=== PATIENT | male | born 1940 | race Caucasian/White ===

== ENCOUNTER 2023-09-12 17:57 | Emergency (ER) | payer MEDICARE, BC ==
[~2023-09-12] VITALS: Ht 188 cm; Wt 113.4 kg
[2023-09-12 18:32] VITALS: BP 158/94; TEMP 98.2; O2SAT 100
[2023-09-12 18:44] LABS: BASOPHILS % (AUTO) 0.6 % (0.0-2.0); EOSINOPHILS # (AUTO) 0.3 K/uL (0.0-0.7); EOSINOPHILS % (AUTO) 5.8 % (0.0-6.0); HEMATOCRIT 33 % (39-51); HEMOGLOBIN 11.1 g/dL (13.5-17.5); LYMPHOCYTES # (AUTO) 1.1 K/uL (0.8-4.8); LYMPHOCYTES % (AUTO) 19.4 % (20.0-44.0); MEAN CORPUSCULAR HEMOGLOBIN 34 PG (26.0-33.0); MEAN CORPUSCULAR HGB CONC 33 g/dl (31.0-36.0); MEAN CORPUSCULAR VOLUME 101 fL (80-96); MONOCYTES # (AUTO) 0.5 K/uL (0.1-1.30); MONOCYTES % (AUTO) 7.9 % (2.0-12.0); NEUTROPHILS # (AUTO) 3.9 K/uL (1.8-8.9); NEUTROPHILS % (AUTO) 66.3 % (43.0-81.0); PLATELET COUNT (AUTO) 168 K/uL (150-450); RED BLOOD CELL COUNT(AUTO) 3.28 MIL/uL (4.5-6.0); RED CELL DISTRIBUTION WIDTH 15.3 % (11.5-15.0); WHITE BLOOD COUNT (AUTO) 5.9 K/uL (4.3-11.0)
[2023-09-12 18:57] LABS: INR 1.06 (0.91-1.10); PARTIAL THROMBOPLASTIN TIME 33.6 SEC (24.3-34.3); PROTHROMBIN TIME 10.9 SECS (9.2-11.1)
== END 2023-09-12 20:16 ==
LOC: ER 18:23
DX: R04.0 Epistaxis (principal); H11.31 Conjunctival hemorrhage, right eye; I10 Essential (primary) hypertension
CPT/HCPCS: 36415; 85025-TC; 85730-TC

== ENCOUNTER 2024-05-25 15:46 | Inpatient (IN) | payer MEDICARE, BC ==
[~2024-05-25] VITALS: Ht 193 cm; Wt 108.9 kg
[2024-05-25] MEDS ORDERED: FAMOTIDINE/PF INJ 20 MG/2 ML VIAL IV ONE (17:46)
[2024-05-25] MEDS ORDERED: ONDANSETRON HCL/PF 4 MG/2 ML VIAL ONE (17:46)
[2024-05-25 17:54] LABS: BASOPHILS # (AUTO) 0.1 K/uL (0.0-0.2); BASOPHILS % (AUTO) 0.7 % (0.0-2.0); EOSINOPHILS % (AUTO) 0.1 % (0.0-6.0); HEMATOCRIT 40 % (39-51); HEMOGLOBIN 13.3 g/dL (13.5-17.5); LYMPHOCYTES # (AUTO) 0.1 K/uL (0.8-4.8); LYMPHOCYTES % (AUTO) 0.9 % (20.0-44.0); MEAN CORPUSCULAR HEMOGLOBIN 34 PG (26.0-33.0); MEAN CORPUSCULAR HGB CONC 34 g/dl (31.0-36.0); MEAN CORPUSCULAR VOLUME 101 fL (80-96); MONOCYTES # (AUTO) 0.2 K/uL (0.1-1.30); MONOCYTES % (AUTO) 1.4 % (2.0-12.0); NEUTROPHILS # (AUTO) 14.4 K/uL (1.8-8.9); NEUTROPHILS % (AUTO) 96.9 % (43.0-81.0); PLATELET COUNT (AUTO) 132 K/uL (150-450); RED BLOOD CELL COUNT(AUTO) 3.94 MIL/uL (4.5-6.0); WHITE BLOOD COUNT (AUTO) 14.9 K/uL (4.3-11.0)
[2024-05-25] MEDS: IV NS 0.9% 1,000 ML BAG IV ONE ×3 (17:54→21:40)
[2024-05-25] MEDS: ONDANSETRON HCL/PF 4 MG/2 ML VIAL IVP ONE (17:55)
[2024-05-25] MEDS: FAMOTIDINE/PF INJ 20 MG/2 ML VIAL IV ONE (17:55)
[2024-05-25 18:54] LABS: POTASSIUM 4.6 mmol/L (3.5-5.1); SODIUM SERUM 142 mmol/L (136-145)
[2024-05-25 18:55] LABS: CALCIUM, SERUM 9.4 mg/dL (8.5-10.1); CARBON DIOXIDE 25 mmol/L (21-32); CHLORIDE 104 mmol/L (98-107); CREATININE 1.9 mg/dL (0.6-1.3)
[2024-05-25 18:56] LABS: ALBUMIN 3.5 g/dL (3.4-5.0)
[2024-05-25 18:57] LABS: UREA NITROGEN, BLOOD 31 mg/dL (7-18)
[2024-05-25 18:58] LABS: ASPARTATE AMINOTRANSFERASE 23 U/L (15-37); BILIRUBIN,DIRECT 0.4 mg/dL (0.0-0.2); GLUCOSE 92 mg/dL (74-106)
[2024-05-25 18:59] LABS: ALANINE AMINOTRANSFERASE 15 U/L (12-78)
[2024-05-25 19:00] LABS: ALKALINE PHOSPHATASE 70 U/L (46-116); TOTAL PROTEIN, SERUM 7.4 g/dL (6.4-8.2)
[2024-05-25 19:10] LABS: LIPASE 19 U/L (16-77)
[2024-05-25 19:35] LABS: APPEARANCE,URINE CLOUDY (CLEAR); BILIRUBIN,URINE 1+ (NEGATIVE); BLOOD, URINE 3+ Ery/uL (NEGATIVE); COLOR,URINE RED (YELLOW); KETONES,URINE TRACE mg/dL (NEGATIVE); LEUKOCYTE ESTERASE ,URINE 2+ (NEGATIVE); NITRITE, URINE POSITIVE (NEGATIVE); PH,URINE 8.5 (5.0-8.0); PROTEIN,URINE 3+ mg/dl (NEGATIVE); UGLUCOSE NEGATIVE (NEGATIVE); UROBILINOGEN,URINE 0.2 EU/dL (0.2)
[2024-05-25] MEDS ORDERED: FURO20TA4 PO (19:35)
[2024-05-25] MEDS ORDERED: FAMO1TAB PO (19:35)
[2024-05-25] MEDS ORDERED: ASCO-352 PO (19:35)
[2024-05-25] MEDS ORDERED: DOCU100T2 PO (19:35)
[2024-05-25] MEDS ORDERED: OMEG-88 PO (19:35)
[2024-05-25] MEDS ORDERED: ATOR10TA PO (19:35)
[2024-05-25] MEDS ORDERED: ASPI-1420 PO (19:35)
[2024-05-25] MEDS ORDERED: MULT-1168 PO (19:35)
[2024-05-25] MEDS ORDERED: LACT10SO68 PO (19:35)
[2024-05-25] MEDS ORDERED: POLY17PO4 PO (19:35)
[2024-05-25] MEDS ORDERED: SIME125C81 PO (19:35)
[2024-05-25] MEDS ORDERED: CHOL500062 PO (19:35)
[2024-05-25] MEDS ORDERED: SPIR50TA5 PO (19:35)
[2024-05-25] MEDS ORDERED: B CO1TAB6 PO (19:35)
[2024-05-25] MEDS ORDERED: MELA5TAB PO (19:35)
[2024-05-25] MEDS ORDERED: SENN8.6T19 PO (19:35)
[2024-05-25] MEDS ORDERED: BISA10SU11 RC (19:35)
[2024-05-25] MEDS ORDERED: ALLO100T PO (19:35)
[2024-05-25] MEDS ORDERED: ACET325T53 PO (19:35)
[2024-05-25 19:43] LABS: RBC,URINE TOO NUMEROUS TO COUN /HPF (0-2)
[2024-05-25 19:47] LABS: ADD URINE CULTURE YES; BACTERIA,URINE Few /HPF (None Seen); SQUAMOUS EPITHELIAL CELL,UR None Seen /HPF (None Seen)
[2024-05-25] MEDS: CEFTRIAXONE 1GM BAG (ER ONLY) 1 GM/50 ML PIGGYBACK IV ONE (20:07)
[2024-05-25] MEDS ORDERED: ASPIRIN 325 MG TABLET ONE (21:03)
[2024-05-25] MEDS: ASPIRIN 325 MG TABLET PO ONE (21:06)
[2024-05-25] MEDS ORDERED: MAGNESIUM HYDROXIDE 30 ML UDC PO PRN (22:00)
[2024-05-25] MEDS ORDERED: ONDANSETRON HCL/PF 4 MG/2 ML VIAL IVP PRN (22:00)
[2024-05-25] MEDS ORDERED: SENNOSIDES 8.6 MG TABLET PO PRN (22:00)
[2024-05-25] MEDS ORDERED: MAG HYDROX/AL HYDROX/SIMETH 30 ML UDC PO PRN (22:00)
[2024-05-25] MEDS ORDERED: Z GUARD REMEDY 4 OZ OINT TP PRN (22:00)
[2024-05-25] MEDS: CEFTRIAXONE 1 G in IV D5W 50 ML IV SCH (22:00)
[2024-05-25] MEDS ORDERED: ACETAMINOPHEN 325 MG TABLET PO PRN (22:00)
[2024-05-25] MEDS ORDERED: BISACODYL SUPP (10 MG) 10 MG/SUPP.RECT SUPP.RECT RC PRN (22:00)
[2024-05-25 22:07] LABS: LACTIC ACID 3.4 mmol/L (0.4-2.0)
[2024-05-25] MEDS ORDERED: LACTULOSE 10 G/15 ML UDC (PYXIS) PO PRN (22:30)
[2024-05-25] MEDS ORDERED: SIMETHICONE SUSP 40 MG/0.6 ML BOTTLE PO PRN (22:30)
[2024-05-25] MEDS ORDERED: DOCUSATE SODIUM 100 MG CAPSULE PO PRN (22:30)
[2024-05-25] MEDS ORDERED: ATORVASTATIN 10 MG TABLET ONE (22:43)
[2024-05-25] MEDS: ATORVASTATIN 10 MG TABLET PO SCH (22:45)
[2024-05-26] MEDS: VANCOMYCIN 1 GM in IV D5W 250ml IV SCH
[2024-05-26] MEDS ORDERED: VANCOMYCIN 1 GM /D5W 250 ML PB IV ONE ×2 (00:36→01:57)
[2024-05-26] MEDS ORDERED: PANTOPRAZOLE 40 MG VIAL ONE (08:46)
[2024-05-26] MEDS: CEFEPIME 1 GM in IV D5W 50 ML IV SCH (08:57)
[2024-05-26] MEDS: PANTOPRAZOLE 40 MG VIAL IV SCH (08:57)
[2024-05-26] MEDS: VITAMIN B COMP W-C 1 TAB TABLET PO SCH (08:58)
[2024-05-26] MEDS: POLYETHYLENE GLYCOL 3350 17 GM POWD.PACK PO SCH (08:58)
[2024-05-26] MEDS: ASPIRIN EC 81 MG TABLET.DR PO SCH (08:58)
[2024-05-26] MEDS: FUROSEMIDE 20 MG TABLET PO SCH (08:58)
[2024-05-26] MEDS: SPIRONOLACTONE 50 MG TABLET PO SCH (08:58)
[2024-05-26] MEDS: ASCORBIC ACID 500 MG TABLET PO SCH (08:59)
[2024-05-26] MEDS: MULTIVITAMINS,THERAGRAN 1 UDTAB TABLET PO SCH (08:59)
[2024-05-26] MEDS: CHOLECALCIFEROL 1,000 UNIT TABLET (VIT D3) PO SCH (08:59)
[2024-05-26] MEDS ORDERED: DHA PO SCH (09:00)
[2024-05-26] MEDS ORDERED: OMEGA PO SCH (09:00)
[2024-05-26] MEDS ORDERED: FISH OIL PO SCH (09:00)
[2024-05-26] MEDS ORDERED: [UNRECOGNIZED DRUG - OTHER] PO SCH (09:00)
[2024-05-26] MEDS ORDERED: EPA PO SCH (09:00)
[2024-05-26 09:33] LABS: BASOPHILS % (AUTO) 0.1 % (0.0-2.0); EOSINOPHILS % (AUTO) 0.1 % (0.0-6.0); HEMATOCRIT 37 % (39-51); HEMOGLOBIN 12.2 g/dL (13.5-17.5); LYMPHOCYTES # (AUTO) 0.7 K/uL (0.8-4.8); LYMPHOCYTES % (AUTO) 3.3 % (20.0-44.0); MEAN CORPUSCULAR HEMOGLOBIN 34 PG (26.0-33.0); MEAN CORPUSCULAR HGB CONC 33 g/dl (31.0-36.0); MEAN CORPUSCULAR VOLUME 103 fL (80-96); MONOCYTES # (AUTO) 0.8 K/uL (0.1-1.30); MONOCYTES % (AUTO) 3.6 % (2.0-12.0); NEUTROPHILS # (AUTO) 19.4 K/uL (1.8-8.9); NEUTROPHILS % (AUTO) 92.9 % (43.0-81.0); PLATELET COUNT (AUTO) 128 K/uL (150-450); RED CELL DISTRIBUTION WIDTH 14.3 % (11.5-15.0); WHITE BLOOD COUNT (AUTO) 20.8 K/uL (4.3-11.0)
[2024-05-26 09:47] LABS: CALCIUM, SERUM 8.8 mg/dL (8.5-10.1); CREATININE 1.6 mg/dL (0.6-1.3); MAGNESIUM 2.1 mg/dL (1.8-2.4); PHOSPHORUS 3.3 mg/dL (2.5-4.9)
[2024-05-26] MEDS: ENOXAPARIN SODIUM 40 MG/0.4 ML DISP.SYRIN SQ SCH (13:30)
[2024-05-26] MEDS ORDERED: ENOXAPARIN SODIUM 40 MG/0.4 ML DISP.SYRIN SQ ONE (13:45)
[2024-05-26] MEDS ORDERED: CEFEPIME 1 GM VIAL ONE (20:55)
[2024-05-26] MEDS ORDERED: ATORVASTATIN 10 MG TABLET ONE (22:38)
[2024-05-27] MEDS ORDERED: VANCOMYCIN 1 GM /D5W 250 ML PB IV ONE (00:55)
[2024-05-27] MEDS: VANCOMYCIN 1 GM in IV D5W 250ml IV SCH (00:56)
[2024-05-27 07:31] LABS: CALCIUM, SERUM 9.1 mg/dL (8.5-10.1); CREATININE 1.3 mg/dL (0.6-1.3); MAGNESIUM 2.1 mg/dL (1.8-2.4); PHOSPHORUS 2.8 mg/dL (2.5-4.9); POTASSIUM 4.9 mmol/L (3.5-5.1); TOTAL PROTEIN, SERUM 6.8 g/dL (6.4-8.2)
[2024-05-27 07:38] LABS: LACTIC ACID 1.2 mmol/L (0.4-2.0)
[2024-05-27] MEDS ORDERED: PANTOPRAZOLE 40 MG VIAL ONE (08:38)
[2024-05-27] MEDS ORDERED: FUROSEMIDE 20 MG TABLET ONE (08:38)
[2024-05-27] MEDS ORDERED: ASPIRIN 81 MG TAB.CHEW ONE (08:39)
[2024-05-27] MEDS ORDERED: SPIRONOLACTONE 25 MG TABLET ONE (08:39)
[2024-05-27] MEDS: SPIRONOLACTONE 25 MG TABLET PO SCH (08:56)
[2024-05-27 09:22] LABS: BASOPHILS % (AUTO) 0.1 % (0.0-2.0); EOSINOPHILS % (AUTO) 0.3 % (0.0-6.0); HEMATOCRIT 37 % (39-51); HEMOGLOBIN 12.7 g/dL (13.5-17.5); LYMPHOCYTES # (AUTO) 0.5 K/uL (0.8-4.8); LYMPHOCYTES % (AUTO) 4.3 % (20.0-44.0); MEAN CORPUSCULAR HEMOGLOBIN 35 PG (26.0-33.0); MEAN CORPUSCULAR HGB CONC 34 g/dl (31.0-36.0); MEAN CORPUSCULAR VOLUME 101 fL (80-96); MONOCYTES # (AUTO) 0.5 K/uL (0.1-1.30); MONOCYTES % (AUTO) 4.3 % (2.0-12.0); PLATELET COUNT (AUTO) 103 K/uL (150-450); RED BLOOD CELL COUNT(AUTO) 3.67 MIL/uL (4.5-6.0); RED CELL DISTRIBUTION WIDTH 14.1 % (11.5-15.0)
[2024-05-27 14:00] VITALS: BP 141/90; TEMP 98.2; O2SAT 93
[2024-05-27 16:00] VITALS: BP 119/82; TEMP 98.7; O2SAT 96
[2024-05-27 20:00] VITALS: BP 119/80; TEMP 99.2; O2SAT 95
[2024-05-28 04:00] VITALS: BP 119/76; TEMP 97.8; O2SAT 96
[2024-05-28 07:01] LABS: BASOPHILS # (AUTO) 0.1 K/uL (0.0-0.2); BASOPHILS % (AUTO) 1.7 % (0.0-2.0); EOSINOPHILS # (AUTO) 0.1 K/uL (0.0-0.7); EOSINOPHILS % (AUTO) 1.2 % (0.0-6.0); HEMATOCRIT 37 % (39-51); HEMOGLOBIN 12.8 g/dL (13.5-17.5); LYMPHOCYTES # (AUTO) 0.8 K/uL (0.8-4.8); LYMPHOCYTES % (AUTO) 11.1 % (20.0-44.0); MEAN CORPUSCULAR HEMOGLOBIN 35 PG (26.0-33.0); MEAN CORPUSCULAR HGB CONC 35 g/dl (31.0-36.0); MEAN CORPUSCULAR VOLUME 100 fL (80-96); MONOCYTES # (AUTO) 0.6 K/uL (0.1-1.30); MONOCYTES % (AUTO) 7.8 % (2.0-12.0); NEUTROPHILS # (AUTO) 5.8 K/uL (1.8-8.9); NEUTROPHILS % (AUTO) 78.2 % (43.0-81.0); PLATELET COUNT (AUTO) 108 K/uL (150-450); RED BLOOD CELL COUNT(AUTO) 3.69 MIL/uL (4.5-6.0); RED CELL DISTRIBUTION WIDTH 13.8 % (11.5-15.0); WHITE BLOOD COUNT (AUTO) 7.5 K/uL (4.3-11.0)
[2024-05-28 07:23] LABS: CREATININE 1.2 mg/dL (0.6-1.3); POTASSIUM 4.2 mmol/L (3.5-5.1)
[2024-05-28 07:40] LABS: CALCIUM, SERUM 9.1 mg/dL (8.5-10.1)
[2024-05-28 08:00] VITALS: BP 115/69; TEMP 94.6; O2SAT 97
[2024-05-28 11:45] VITALS: BP 134/80; TEMP 98.3; O2SAT 96
[2024-05-28 12:12] LABS: LYMPHOCYTES % (MANUAL) 8 % (16-48); MONOCYTES % (MANUAL) 6 % (0-11.0); NEUTROPHILS % (MANUAL) 86 (42-76); PLATELET ESTIMATE DECREASED
[2024-05-28 12:13] LABS: ANISOCYTOSIS 1+
[2024-05-28 14:09] LABS: *SPE A/G RATIO 0.9 (0.7-1.7); *SPE ALBUMIN 2.9 g/dL (2.9-4.4); *SPE ALPHA-1-GLOBULIN 0.3 g/dL (0.0-0.4); *SPE ALPHA-2-GLOBULIN 0.7 g/dL (0.4-1.0); *SPE GLOBULIN, TOTAL 3.4 g/dL (2.2-3.9); *SPE M-SPIKE Not Observed g/dL (Not Observed); *SPE PROTEIN TOTAL 6.3 g/dL (6.0-8.5); *SPEGAMMA GLOBULIN 1.4 g/dL (0.4-1.8)
[2024-05-28 20:00] VITALS: BP 125/83; TEMP 98.2; O2SAT 97
[2024-05-29] VITALS: BP 129/66; TEMP 98.1; O2SAT 97
[2024-05-29] MEDS: VANCOMYCIN HCL 1.25 GM in IV D5W 250 ML IV SCH (00:09)
[2024-05-29 01:06] LABS: PTH, INTACT 33 pg/mL (15-65)
[2024-05-29 04:00] VITALS: BP 109/62; TEMP 98.4; O2SAT 95
[2024-05-29 07:40] LABS: BASOPHILS % (AUTO) 0.2 % (0.0-2.0); EOSINOPHILS # (AUTO) 0.1 K/uL (0.0-0.7); HEMATOCRIT 37 % (39-51); HEMOGLOBIN 12.9 g/dL (13.5-17.5); LYMPHOCYTES # (AUTO) 1.1 K/uL (0.8-4.8); LYMPHOCYTES % (AUTO) 15.4 % (20.0-44.0); MEAN CORPUSCULAR HEMOGLOBIN 35 PG (26.0-33.0); MEAN CORPUSCULAR HGB CONC 35 g/dl (31.0-36.0); MEAN CORPUSCULAR VOLUME 100 fL (80-96); MONOCYTES # (AUTO) 0.8 K/uL (0.1-1.30); MONOCYTES % (AUTO) 10.7 % (2.0-12.0); NEUTROPHILS # (AUTO) 5.3 K/uL (1.8-8.9); NEUTROPHILS % (AUTO) 71.7 % (43.0-81.0); PLATELET COUNT (AUTO) 120 K/uL (150-450); RED CELL DISTRIBUTION WIDTH 13.5 % (11.5-15.0); WHITE BLOOD COUNT (AUTO) 7.4 K/uL (4.3-11.0)
[2024-05-29 08:00] VITALS: BP 132/90; TEMP 98.2; O2SAT 94
[2024-05-29 08:00] LABS: CALCIUM, SERUM 9.6 mg/dL (8.5-10.1); CREATININE 1.1 mg/dL (0.6-1.3); PHOSPHORUS 3.3 mg/dL (2.5-4.9); POTASSIUM 4.4 mmol/L (3.5-5.1)
[2024-05-29] MEDS: PANTOPRAZOLE 40 MG TABLET.DR PO SCH (08:16)
[2024-05-29 20:00] VITALS: BP 126/85; TEMP 98.7; O2SAT 93
[2024-05-30] VITALS (7 sets, daily range): BP systolic 113–138; BP diastolic 76–93; TEMP 97.7–98.7; O2SAT 93–99
[2024-05-30 06:21] LABS: BASOPHILS % (AUTO) 0.2 % (0.0-2.0); EOSINOPHILS # (AUTO) 0.2 K/uL (0.0-0.7); EOSINOPHILS % (AUTO) 2.5 % (0.0-6.0); HEMATOCRIT 38 % (39-51); HEMOGLOBIN 13.3 g/dL (13.5-17.5); LYMPHOCYTES # (AUTO) 1.2 K/uL (0.8-4.8); MEAN CORPUSCULAR HEMOGLOBIN 35 PG (26.0-33.0); MEAN CORPUSCULAR HGB CONC 35 g/dl (31.0-36.0); MEAN CORPUSCULAR VOLUME 100 fL (80-96); MONOCYTES # (AUTO) 0.8 K/uL (0.1-1.30); MONOCYTES % (AUTO) 10.5 % (2.0-12.0); NEUTROPHILS # (AUTO) 5.3 K/uL (1.8-8.9); NEUTROPHILS % (AUTO) 70.8 % (43.0-81.0); PLATELET COUNT (AUTO) 124 K/uL (150-450); RED CELL DISTRIBUTION WIDTH 13.5 % (11.5-15.0); WHITE BLOOD COUNT (AUTO) 7.5 K/uL (4.3-11.0)
[2024-05-30 06:31] LABS: CREATININE 1.1 mg/dL (0.6-1.3); MAGNESIUM 1.8 mg/dL (1.8-2.4); PHOSPHORUS 3.1 mg/dL (2.5-4.9); POTASSIUM 4.1 mmol/L (3.5-5.1)
[2024-05-31] VITALS: BP 135/88; TEMP 97.9; O2SAT 99
[2024-05-31 04:00] VITALS: BP 120/80; TEMP 97.5; O2SAT 98
[2024-05-31 08:00] VITALS: BP 148/86; TEMP 97.5; O2SAT 98
[2024-05-31] MEDS ORDERED: CT SWABBABLE VALVE TRANS SET 1 EA INFUS.SET MC ONE (10:28)
[2024-05-31] MEDS ORDERED: IOHEXOL-350 100 ML VIAL IV ONE (10:28)
[2024-05-31] MEDS ORDERED: METOPROLOL TARTRATE INJ 5 MG/5 ML AMPUL ONE (10:28)
[2024-05-31] MEDS ORDERED: NITROGLYCERIN 0.4 MG/TAB BOTTLE ONE (10:28)
[2024-05-31] MEDS ORDERED: IV NS 0.9% 250 ML IV ONE (10:28)
[2024-05-31] MEDS: METOPROLOL TARTRATE INJ 5 MG/5 ML AMPUL IVP PRN (10:45)
[2024-05-31] MEDS: NITROGLYCERIN 0.4 MG/TAB BOTTLE SL ONE (10:58)
[2024-05-31 20:33] VITALS: BP 112/68; TEMP 97.5; O2SAT 96
[2024-06-01 04:51] VITALS: BP 147/96; TEMP 98.4; O2SAT 96
[2024-06-01 08:00] VITALS: BP 125/73; TEMP 97.7; O2SAT 99
[2024-06-01 09:35] LABS: CHOLESTEROL 127 mg/dL (<200); HDL CHOLESTEROL 38 mg/dL (40-60); LDL 65 mg/dL (0-99); TRIGLYCERIDES 61 mg/dL (30-150)
[2024-06-01] MEDS ORDERED: AMOX-430 PO (11:39)
[2024-06-01 12:09] VITALS: BP 119/80; TEMP 98.3; O2SAT 95
== END 2024-06-01 18:03 | disposition home health service (06) | DRG 871 ==
LOC: ER 15:51 → TRANSITION 21:24 → TELE 05-27 10:36 → MED 06-01 11:00
DX: A41.9 Sepsis, unspecified organism (principal); G93.41 Metabolic encephalopathy; I21.A1 Myocardial infarction type 2; N39.0 Urinary tract infection, site not specified; E44.0 Moderate protein-calorie malnutrition; E87.20 Acidosis, unspecified; L03.115 Cellulitis of right lower limb; L03.116 Cellulitis of left lower limb; N17.9 Acute kidney failure, unspecified; I87.393 Chronic venous hypertension (idiopathic) with other complications of bilateral lower extremity; N20.0 Calculus of kidney; K40.90 Unilateral inguinal hernia, without obstruction or gangrene, not specified as recurrent; E78.5 Hyperlipidemia, unspecified; I48.91 Unspecified atrial fibrillation; I25.10 Atherosclerotic heart disease of native coronary artery without angina pectoris; I12.9 Hypertensive chronic kidney disease with stage 1 through stage 4 chronic kidney disease, or unspecified chronic kidney disease; N18.9 Chronic kidney disease, unspecified; I77.819 Aortic ectasia, unspecified site; D64.9 Anemia, unspecified; D69.6 Thrombocytopenia, unspecified; R65.20 Severe sepsis without septic shock; K21.9 Gastro-esophageal reflux disease without esophagitis; M20.42 Other hammer toe(s) (acquired), left foot; Z86.73 Personal history of transient ischemic attack (TIA), and cerebral infarction without residual deficits; M20.41 Other hammer toe(s) (acquired), right foot; Z99.3 Dependence on wheelchair; R80.9 Proteinuria, unspecified; Z79.899 Other long term (current) drug therapy
CPT/HCPCS: 36415; 71045-TC; 75574; 76770-TC; 80048-TC; 80053-TC; 80061-TC; 80076-TC; 80202-TC; 81001; 82550-TC; 83605-TC; 83690-TC; 83735-TC; 83970; 84100-TC; 84155; 84165; 84484-TC; 85025-TC; 87040-TC; 87086-TC; 92526; 92611-TC; 93307-TC; 97110-TC; 97116-TC; 97530-TC; A4223; G0378; J0692; J0696; J1650; J2405; J2470; J3370; J3490; J7030; J7050; J7060; Q9967

== ENCOUNTER 2024-07-08 14:18 | Inpatient (IN) | payer BC, MEDICARE ==
[~2024-07-08] VITALS: Ht 190.5 cm; Wt 111.1 kg
[~2024-07-08 14:18] MED LIST: ALLO100T PO; AMOX-430 PO; ASCO-352 PO; ASPI-1420 PO; ATOR10TA PO; B CO1TAB6 PO; BISA10SU11 RC; CHOL500062 PO; DOCU100T2 PO; FAMO1TAB PO; FURO20TA4 PO; LACT10SO68 PO; MELA5TAB PO; MULT-1168 PO; OMEG-88 PO; POLY17PO4 PO; SENN8.6T19 PO; SIME125C81 PO; SPIR50TA5 PO
[2024-07-08] MEDS ORDERED: KETOROLAC TROMETHAMINE 15 MG/ML VIAL ONE (15:47)
[2024-07-08] MEDS: IV NS 0.9% 1,000 ML BAG IV ONE ×2 (15:55→18:17)
[2024-07-08] MEDS: KETOROLAC TROMETHAMINE 15 MG/ML VIAL IV ONE (15:57)
[2024-07-08 16:09] LABS: BASOPHILS % (AUTO) 0.3 % (0.0-2.0); EOSINOPHILS % (AUTO) 0.1 % (0.0-6.0); HEMATOCRIT 37 % (39-51); HEMOGLOBIN 12.8 g/dL (13.5-17.5); LYMPHOCYTES # (AUTO) 0.4 K/uL (0.8-4.8); LYMPHOCYTES % (AUTO) 2.9 % (20.0-44.0); MEAN CORPUSCULAR HEMOGLOBIN 35 PG (26.0-33.0); MEAN CORPUSCULAR HGB CONC 35 g/dl (31.0-36.0); MEAN CORPUSCULAR VOLUME 100 fL (80-96); MONOCYTES # (AUTO) 0.6 K/uL (0.1-1.30); MONOCYTES % (AUTO) 4.1 % (2.0-12.0); NEUTROPHILS # (AUTO) 13.9 K/uL (1.8-8.9); NEUTROPHILS % (AUTO) 92.6 % (43.0-81.0); PLATELET COUNT (AUTO) 210 K/uL (150-450); RED BLOOD CELL COUNT(AUTO) 3.69 MIL/uL (4.5-6.0); RED CELL DISTRIBUTION WIDTH 15.8 % (11.5-15.0)
[2024-07-08 16:17] LABS: APPEARANCE,URINE SLIGHTLY CLOUDY (CLEAR); BILIRUBIN,URINE NEGATIVE (NEGATIVE); BLOOD, URINE 1+ Ery/uL (NEGATIVE); COLOR,URINE YELLOW (YELLOW); KETONES,URINE NEGATIVE (NEGATIVE); LEUKOCYTE ESTERASE ,URINE 1+ (NEGATIVE); NITRITE, URINE POSITIVE (NEGATIVE); PH,URINE 7.5 (5.0-8.0); PROTEIN,URINE NEGATIVE (NEGATIVE); UGLUCOSE NEGATIVE (NEGATIVE); UROBILINOGEN,URINE 0.2 EU/dL (0.2)
[2024-07-08 16:20] LABS: CALCIUM, SERUM 10.2 mg/dL (8.5-10.1); CREATININE 1.5 mg/dL (0.6-1.3); POTASSIUM 5.5 mmol/L (3.5-5.1)
[2024-07-08 16:27] LABS: ALBUMIN 3.6 g/dL (3.4-5.0); BILIRUBIN,DIRECT 0.4 mg/dL (0.0-0.2); BILIRUBIN,TOTAL 1.6 mg/dL (0.2-1.0); TOTAL PROTEIN, SERUM 8.1 g/dL (6.4-8.2)
[2024-07-08 16:53] LABS: ADD URINE CULTURE YES; BACTERIA,URINE 3+ /HPF (None Seen); SQUAMOUS EPITHELIAL CELL,UR 0-2 /HPF (None Seen)
[2024-07-08 16:54] LABS: TRIPLE PHOSPHATE CRYSTAL,UR Few /HPF (None Seen)
[2024-07-08] MEDS ORDERED: ONDANSETRON HCL/PF 4 MG/2 ML VIAL ONE (17:07)
[2024-07-08] MEDS: ONDANSETRON HCL/PF - ER 4 MG/2 ML VIAL IV ONE (17:13)
[2024-07-08] MEDS ORDERED: LOPE2CAP PO (17:24)
[2024-07-08] MEDS ORDERED: ACET325T53 PO (17:24)
[2024-07-08] MEDS ORDERED: FAMO20TA8 PO (17:24)
[2024-07-08] MEDS ORDERED: NEOM28.43 TP (17:24)
[2024-07-08] MEDS: PIPERACILLIN /TAZOBACTAM 3.375 G in IV D5W 50 ML IV ONE (18:19)
[2024-07-08] MEDS ORDERED: ACETAMINOPHEN 325 MG TABLET PO PRN (20:30)
[2024-07-08] MEDS ORDERED: Z GUARD REMEDY 4 OZ OINT TP PRN (20:30)
[2024-07-08] MEDS ORDERED: MAGNESIUM HYDROXIDE 30 ML UDC PO PRN (20:30)
[2024-07-08] MEDS ORDERED: MAG HYDROX/AL HYDROX/SIMETH 30 ML UDC PO PRN (20:30)
[2024-07-08] MEDS ORDERED: ONDANSETRON HCL/PF 4 MG/2 ML VIAL IVP PRN (20:30)
[2024-07-08 21:00] VITALS: BP 98/60; TEMP 98; O2SAT 97
[2024-07-08] MEDS ORDERED: LACTULOSE 10 G/15 ML UDC (PYXIS) PO PRN (21:00)
[2024-07-08] MEDS ORDERED: DOCUSATE SODIUM 100 MG CAPSULE PO PRN (21:00)
[2024-07-08] MEDS ORDERED: BISACODYL SUPP (10 MG) 10 MG/SUPP.RECT SUPP.RECT RC PRN (21:00)
[2024-07-08 21:30] VITALS: BP 98/60; TEMP 98; O2SAT 97
[2024-07-08] MEDS ORDERED: SODIUM ZIRCONIUM CYCLOSILICATE 10 GM POWD.PACK ONE (23:45)
[2024-07-08] MEDS ORDERED: PIPERACI/TAZO 3.375GM/D5W 50ML PB IV ONE (23:45)
[2024-07-08] MEDS: ATORVASTATIN 10 MG TABLET PO SCH (23:46)
[2024-07-08] MEDS: SODIUM ZIRCONIUM CYCLOSILICATE 10 GM POWD.PACK PO ONE (23:46)
[2024-07-08] MEDS: PIPERACILLIN /TAZOBACTAM 3.375 G in IV D5W 50 ML IV SCH (23:47)
[2024-07-09] MEDS ORDERED: PIPERACI/TAZO 3.375GM/D5W 50ML PB IV ONE (05:45)
[2024-07-09 07:04] LABS: BASOPHILS % (AUTO) 0.2 % (0.0-2.0); EOSINOPHILS # (AUTO) 0.1 K/uL (0.0-0.7); EOSINOPHILS % (AUTO) 0.3 % (0.0-6.0); HEMATOCRIT 34 % (39-51); HEMOGLOBIN 11.2 g/dL (13.5-17.5); LYMPHOCYTES # (AUTO) 1.4 K/uL (0.8-4.8); LYMPHOCYTES % (AUTO) 8.8 % (20.0-44.0); MEAN CORPUSCULAR HEMOGLOBIN 36 PG (26.0-33.0); MEAN CORPUSCULAR HGB CONC 33 g/dl (31.0-36.0); MEAN CORPUSCULAR VOLUME 107 fL (80-96); MONOCYTES # (AUTO) 1.2 K/uL (0.1-1.30); MONOCYTES % (AUTO) 7.1 % (2.0-12.0); NEUTROPHILS # (AUTO) 13.7 K/uL (1.8-8.9); NEUTROPHILS % (AUTO) 83.6 % (43.0-81.0); PLATELET COUNT (AUTO) 156 K/uL (150-450); RED BLOOD CELL COUNT(AUTO) 3.16 MIL/uL (4.5-6.0); RED CELL DISTRIBUTION WIDTH 17.2 % (11.5-15.0); WHITE BLOOD COUNT (AUTO) 16.4 K/uL (4.3-11.0)
[2024-07-09 08:00] VITALS: BP 107/62; TEMP 97.5; O2SAT 100
[2024-07-09 08:26] LABS: CREATININE 1.5 mg/dL (0.6-1.3); MAGNESIUM 2.1 mg/dL (1.8-2.4); PHOSPHORUS 4.2 mg/dL (2.5-4.9); POTASSIUM 5.3 mmol/L (3.5-5.1)
[2024-07-09] MEDS ORDERED: EPA PO SCH (09:00)
[2024-07-09] MEDS ORDERED: [UNRECOGNIZED DRUG - OTHER] PO SCH (09:00)
[2024-07-09] MEDS ORDERED: FISH OIL PO SCH (09:00)
[2024-07-09] MEDS ORDERED: DHA PO SCH (09:00)
[2024-07-09] MEDS ORDERED: OMEGA PO SCH (09:00)
[2024-07-09] MEDS: ASPIRIN EC 81 MG TABLET.DR PO SCH (10:21)
[2024-07-09] MEDS: PANTOPRAZOLE 40 MG VIAL IV SCH (10:21)
[2024-07-09] MEDS: SENNOSIDES 8.6 MG TABLET PO PRN (10:22)
[2024-07-09] MEDS: CHOLECALCIFEROL 1,000 UNIT TABLET (VIT D3) PO SCH (10:22)
[2024-07-09] MEDS: ASCORBIC ACID 500 MG TABLET PO SCH (10:22)
[2024-07-09] MEDS: VITAMIN B COMP W-C 1 TAB TABLET PO SCH (10:22)
[2024-07-09] MEDS: POLYETHYLENE GLYCOL 3350 17 GM POWD.PACK PO SCH (10:23)
[2024-07-09] MEDS: FUROSEMIDE 20 MG TABLET PO SCH (10:24)
[2024-07-09] MEDS: MULTIPLE VIT (LYCOPENE/FA/MV,CA,IRON,MIN/LUT)1 TAB PO SCH (10:28)
[2024-07-09] MEDS: SODIUM ZIRCONIUM CYCLOSILICATE 5 GM POWD.PACK PO ONE (10:58)
[2024-07-09 16:00] VITALS: BP 103/69; TEMP 98.4; O2SAT 97
[2024-07-09 20:00] VITALS: BP 106/68; TEMP 97.3
[2024-07-09 20:51] VITALS: BP 99/67; TEMP 97.3; O2SAT 97
[2024-07-10 07:10] LABS: BASOPHILS % (AUTO) 0.2 % (0.0-2.0); EOSINOPHILS # (AUTO) 0.2 K/uL (0.0-0.7); EOSINOPHILS % (AUTO) 1.6 % (0.0-6.0); HEMATOCRIT 32 % (39-51); LYMPHOCYTES # (AUTO) 1.2 K/uL (0.8-4.8); LYMPHOCYTES % (AUTO) 12.8 % (20.0-44.0); MEAN CORPUSCULAR HEMOGLOBIN 35 PG (26.0-33.0); MEAN CORPUSCULAR HGB CONC 35 g/dl (31.0-36.0); MEAN CORPUSCULAR VOLUME 101 fL (80-96); MONOCYTES # (AUTO) 0.8 K/uL (0.1-1.30); MONOCYTES % (AUTO) 8.5 % (2.0-12.0); NEUTROPHILS # (AUTO) 7.1 K/uL (1.8-8.9); NEUTROPHILS % (AUTO) 76.9 % (43.0-81.0); PLATELET COUNT (AUTO) 147 K/uL (150-450); RED BLOOD CELL COUNT(AUTO) 3.16 MIL/uL (4.5-6.0); RED CELL DISTRIBUTION WIDTH 16.3 % (11.5-15.0); WHITE BLOOD COUNT (AUTO) 9.2 K/uL (4.3-11.0)
[2024-07-10 07:16] LABS: CALCIUM, SERUM 8.6 mg/dL (8.5-10.1); CREATININE 1.4 mg/dL (0.6-1.3); POTASSIUM 4.4 mmol/L (3.5-5.1)
[2024-07-10 08:00] VITALS: BP 126/89; TEMP 97.7; O2SAT 100
[2024-07-10] MEDS: ZOSYN IVPB 3.375 G in IV D5W 50ml IV SCH (13:03)
[2024-07-10 16:00] VITALS: BP 108/74; TEMP 97.9; O2SAT 100
[2024-07-10] MEDS ORDERED: MINERAL OIL/PETROLATUM,WHITE 120 GM JAR TP PRN (19:30)
[2024-07-10 20:00] VITALS: BP 101/63; TEMP 97.5; O2SAT 99
[2024-07-11 07:58] LABS: BASOPHILS % (AUTO) 0.4 % (0.0-2.0); EOSINOPHILS # (AUTO) 0.2 K/uL (0.0-0.7); EOSINOPHILS % (AUTO) 2.4 % (0.0-6.0); HEMATOCRIT 33 % (39-51); HEMOGLOBIN 11.5 g/dL (13.5-17.5); LYMPHOCYTES # (AUTO) 1.1 K/uL (0.8-4.8); LYMPHOCYTES % (AUTO) 15.1 % (20.0-44.0); MEAN CORPUSCULAR HEMOGLOBIN 35 PG (26.0-33.0); MEAN CORPUSCULAR HGB CONC 35 g/dl (31.0-36.0); MEAN CORPUSCULAR VOLUME 100 fL (80-96); MONOCYTES # (AUTO) 0.6 K/uL (0.1-1.30); MONOCYTES % (AUTO) 8.3 % (2.0-12.0); NEUTROPHILS # (AUTO) 5.5 K/uL (1.8-8.9); NEUTROPHILS % (AUTO) 73.8 % (43.0-81.0); PLATELET COUNT (AUTO) 173 K/uL (150-450); RED BLOOD CELL COUNT(AUTO) 3.31 MIL/uL (4.5-6.0); RED CELL DISTRIBUTION WIDTH 15.7 % (11.5-15.0); WHITE BLOOD COUNT (AUTO) 7.4 K/uL (4.3-11.0)
[2024-07-11 08:00] VITALS: BP 136/90; TEMP 98.2; O2SAT 96
[2024-07-11 08:20] LABS: CALCIUM, SERUM 9.2 mg/dL (8.5-10.1); CREATININE 1.2 mg/dL (0.6-1.3); POTASSIUM 4.4 mmol/L (3.5-5.1)
[2024-07-11] MEDS: PANTOPRAZOLE 40 MG TABLET.DR PO SCH (08:34)
[2024-07-11 16:15] VITALS: BP 125/75; TEMP 98.4; O2SAT 97
[2024-07-11 20:00] VITALS: BP 122/78; TEMP 98.3; O2SAT 98
[2024-07-12 07:00] VITALS: BP 108/72; TEMP 98.4; O2SAT 97
[2024-07-12 16:00] VITALS: BP 131/76; TEMP 97.7; O2SAT 98
[2024-07-12 20:00] VITALS: BP 97/66; TEMP 97.3; O2SAT 96
[2024-07-13 07:41] LABS: BASOPHILS % (AUTO) 0.6 % (0.0-2.0); EOSINOPHILS # (AUTO) 0.3 K/uL (0.0-0.7); HEMATOCRIT 34 % (39-51); LYMPHOCYTES # (AUTO) 1.7 K/uL (0.8-4.8); LYMPHOCYTES % (AUTO) 24.2 % (20.0-44.0); MEAN CORPUSCULAR HEMOGLOBIN 35 PG (26.0-33.0); MEAN CORPUSCULAR HGB CONC 35 g/dl (31.0-36.0); MEAN CORPUSCULAR VOLUME 98 fL (80-96); MONOCYTES # (AUTO) 0.6 K/uL (0.1-1.30); MONOCYTES % (AUTO) 8.4 % (2.0-12.0); NEUTROPHILS # (AUTO) 4.5 K/uL (1.8-8.9); NEUTROPHILS % (AUTO) 62.8 % (43.0-81.0); PLATELET COUNT (AUTO) 204 K/uL (150-450); RED BLOOD CELL COUNT(AUTO) 3.45 MIL/uL (4.5-6.0); WHITE BLOOD COUNT (AUTO) 7.2 K/uL (4.3-11.0)
[2024-07-13 08:00] VITALS: BP 118/85; TEMP 97.9; O2SAT 93
[2024-07-13 08:28] LABS: CALCIUM, SERUM 9.4 mg/dL (8.5-10.1); CREATININE 1.2 mg/dL (0.6-1.3); POTASSIUM 4.2 mmol/L (3.5-5.1)
[2024-07-13 16:00] VITALS: BP 114/77; TEMP 98.1; O2SAT 97
[2024-07-13 20:00] VITALS: BP 141/67; TEMP 98.2; O2SAT 99
[2024-07-14 08:00] VITALS: BP 136/85; TEMP 97.4; O2SAT 98
[2024-07-14] MEDS ORDERED: LEVO250T59 PO (08:42)
[2024-07-14] MEDS ORDERED: LEVO500T90 PO (11:35)
[2024-07-14] MEDS: ZOSYN IVPB 3.375 G in IV D5W 50ml IV SCH (12:26)
[2024-07-14] MEDS ORDERED: PIPERACILLIN /TAZOBACTAM 3.375 G in IV D5W 100 ML IV SCH (13:00)
== END 2024-07-14 15:29 | DRG 699 ==
LOC: ER 14:21 → MED 20:19
PROVIDERS: ATTEND Nurse Practitioner Family
DX: N13.9 Obstructive and reflux uropathy, unspecified (principal); L03.115 Cellulitis of right lower limb; N17.9 Acute kidney failure, unspecified; L03.116 Cellulitis of left lower limb; N39.0 Urinary tract infection, site not specified; I48.91 Unspecified atrial fibrillation; E87.5 Hyperkalemia; E66.9 Obesity, unspecified; Z86.73 Personal history of transient ischemic attack (TIA), and cerebral infarction without residual deficits; K59.00 Constipation, unspecified; I10 Essential (primary) hypertension; E78.5 Hyperlipidemia, unspecified; I25.2 Old myocardial infarction; I87.8 Other specified disorders of veins; E80.6 Other disorders of bilirubin metabolism; Z79.899 Other long term (current) drug therapy; Z87.442 Personal history of urinary calculi; Z86.79 Personal history of other diseases of the circulatory system; Z79.82 Long term (current) use of aspirin; Z86.19 Personal history of other infectious and parasitic diseases; N20.0 Calculus of kidney; N28.1 Cyst of kidney, acquired; K40.90 Unilateral inguinal hernia, without obstruction or gangrene, not specified as recurrent; Z68.33 Body mass index [BMI] 33.0-33.9, adult; I89.0 Lymphedema, not elsewhere classified; L85.3 Xerosis cutis
CPT/HCPCS: 36415; 71045-TC; 76700-TC; 80048-TC; 80076-TC; 81001; 83605-TC; 83690-TC; 83735-TC; 84100-TC; 85025-TC; 87040-TC; 87081-TC; 87086-TC; 87186-TC; A4223; G0378; J1885; J2405; J2470; J2543; J7030; J7040; J7060